=== PATIENT | female | born 1970 | race Two or more races ===

== ENCOUNTER 2018-04-04 06:56 | Inpatient (IN) | payer BC ==
[~2018-04-04] VITALS: Ht 152.4 cm; Wt 49.9 kg
[2018-04-04 08:20] LABS: Urine Bacteria FEW /hpf (None Seen); Urine Blood 2+ /uL (Negative); Urine Specific Gravity 1.041 (1.001-1.035); Urine WBC 8 /hpf (0 - 5)
[2018-04-04] MEDS ORDERED: SODIUM CHLORIDE 0.9% 1,000 ML IV ONE ×2 (08:35)
[2018-04-04 08:36] LABS: Albumin 3.8 g/dL (3.4-5.0); Amylase 19 U/L (25-115); Anion Gap 12 (5-15); BUN/Creatinine Ratio 16.7; Blood Urea Nitrogen 10 mg/dL (7-18); Calcium 8.7 mg/dL (8.5-10.1); Carbon Dioxide 23 mmol/L (21-32); Chloride 100 mmol/L (98-107); GFR African American > 60 mL/min; GFR Non-African American > 60 mL/min; Lipase 90 U/L (73-393); Magnesium 1.9 mg/dL (1.6-2.6); Potassium 3.3 mmol/L (3.5-5.1); Sodium 135 mmol/L (136-145)
[2018-04-04 08:38] LABS: INR 0.98 (0.9-1.15); Partial Thromboplastin Time 25.5 sec (23.78-33.04); Prothrombin Time 10.5 sec (9.27-12.13)
[2018-04-04 08:40] LABS: Basophils # (auto) 0 uL; Basophils % (auto) 0.1 % (0.0-2.0); Eosinophils # (auto) 0 uL; Eosinophils % (auto) 0.1 % (0.0-7.0); Hematocrit 46.4 % (36.0-46.0); Hemoglobin 15.8 g/dL (12.2-16.2); Lymphocytes # (auto) 0.6 uL; Lymphocytes % (auto) 8.6 % (10.0-50.0); Mean Corpuscular Hemoglobin 30.4 pg (28.0-32.0); Mean Corpuscular Hgb Conc. 34.1 g/dL (32.0-36.0); Mean Corpuscular Volume 89.2 fL (80.0-100.0); Monocytes # (auto) 0.5 uL; Monocytes % (auto) 7.1 % (0.0-12.0); Neutrophils # (auto) 5.5 uL; Neutrophils % (auto) 84.1 % (37.0-80.0); Nucleated Red Blood Cells % 0.1 %; Platelet Count (auto) 269 10^3/uL (140-450); Red Cell Distribution Width 13.7 % (11.8-14.3); White Blood Cell 6.6 10^3/uL (4.4-10.8)
[2018-04-04 08:42] LABS: Glucose 405 mg/dL (74-106)
[2018-04-04] MEDS ORDERED: InsuLIN REG 1unit/0.01ml Soln (100units/ml) IV ONE (08:45)
[2018-04-04 08:47] LABS: Alanine Aminotransferase 89 U/L (13-56); Alkaline Phosphatase 169 U/L (45-117); Aspartate Aminotransferase 51 U/L (15-37); Total Protein 8.2 g/dL (6.4-8.2)
[2018-04-04] MEDS ORDERED: PIPERACILLIN-TAZOB 3.375GM 100 ML IV ONE (10:15)
[2018-04-04] MEDS ORDERED: VANCOMYCIN 1GM/250ML 250 ML IV ONE (10:15)
[2018-04-04] MEDS ORDERED: ONDANSETRON HCL 4 MG/2 ML VIAL IV ONE ×2 (10:45→14:30)
[2018-04-04] MEDS ORDERED: MORPHINE SULFATE 10 MG/ML INJ 1ML SDV IV ONE (10:45)
[2018-04-04] MEDS ORDERED: SODIUM CHLORIDE 0.9% 1,000 ML IV SCH (11:30)
[2018-04-04] MEDS ORDERED: MORPHINE SULFATE 10 MG/ML INJ 1ML SDV IV PRN (11:30)
[2018-04-04] MEDS ORDERED: NITROGLYCERIN 0.4 MG SL TAB SL PRN (11:30)
[2018-04-04] MEDS ORDERED: DEXTROSE (50%) 50ML SYRG IV PRN (11:30)
[2018-04-04] MEDS: InsuLIN REG 1unit/0.01ml Soln (100units/ml) SC SCH ×2 (12:00→18:03)
[2018-04-04] MEDS: ACCU-CHEK COMFORT CURVE STRIP VI SCH ×2 (12:01→18:03)
[2018-04-04] MEDS ORDERED: cefTRIAXone 1GM/50ML D5W 50 ML IV ONE (12:15)
[2018-04-04] MEDS ORDERED: ceFAZolin 1GM/50ML 50 ML IV ONE (13:08)
[2018-04-04] MEDS ORDERED: fentaNYL CITRATE 100 MCG/2 ML VL ONE (13:14)
[2018-04-04] MEDS ORDERED: PROPOFOL 10 MG/ML 20 ML IV ONE (13:15)
[2018-04-04] MEDS ORDERED: MIDAZOLAM HCL 1MG/1ML-2 ML VIAL ONE (13:15)
[2018-04-04] MEDS ORDERED: ROCURONIUM 10MG/ML 10ML VIAL IV ONE (13:15)
[2018-04-04] MEDS ORDERED: hydrALAZINE HCL 20 MG/ML VL IV PRN (14:30)
[2018-04-04] MEDS ORDERED: ePHEDrine SULFATE 50 MG/ML AMP IV PRN (14:30)
[2018-04-04] MEDS ORDERED: HYDROmorphone HCL 2 MG/ML VL IV PRN (14:30)
[2018-04-04] MEDS: ONDANSETRON HCL 4 MG/2 ML VIAL IV PRN (14:59)
--- NOTE | 2018-04-04 17:50 | NUR ---
Telemetry admit from PACU JADESHASHANKSEAMUSJAGJIT admitted to Telemetry unit after SBAR received. Patient oriented to Ashley bryant RN, unit, room, bed, and unit policies regarding patient care and visiting hours. Patient now on continuous telemetry monitoring placed on bedside oxygen, weighed by bedscale and encouraged to call if they need something. All questions and concerns addressed, patient verbalized understanding.
[2018-04-04] MEDS: metroNIDAZOLE 500MG/100ML 100 ML IV SCH (18:03)
[2018-04-04] MEDS: SODIUM CHLORIDE 0.9% 1,000 ML IV SCH (18:03)
--- NOTE | 2018-04-04 18:49 | NUR ---
END OF SHIFT PATIENT RESTING IN BED. NO S/S OF DISTRESS. INSTRUCTED PATIENT TO CALL PRN. BED IN LOWEST LOCKED POSITION, CALL LIGHT WITHIN REACH. ENDORSED CARE TO REYNA RUIZ.
--- NOTE | 2018-04-04 19:00 | NUR ---
Opening Shift Note Assumed care of patient, awake and alert. No S/S of distress/SOB or pain. Instructed on POC and to call for assist PRN, will continue to monitor for changes Q1hr and PRN.
[2018-04-04 22:00] VITALS: BP 96/67
[2018-04-05] MEDS: metroNIDAZOLE 500MG/100ML 100 ML IV SCH ×5 (00:41→23:17)
[2018-04-05] MEDS: SODIUM CHLORIDE 0.9% 1,000 ML IV SCH ×4 (00:42→18:18)
[2018-04-05 04:00] VITALS: BP 89/53
[2018-04-05 05:31] LABS: Basophils # (auto) 0 uL; Basophils % (auto) 0.1 % (0.0-2.0); Eosinophils # (auto) 0 uL; Eosinophils % (auto) 0.9 % (0.0-7.0); Hematocrit 36.5 % (36.0-46.0); Hemoglobin 12.5 g/dL (12.2-16.2); Lymphocytes # (auto) 0.8 uL; Lymphocytes % (auto) 15.6 % (10.0-50.0); Mean Corpuscular Hemoglobin 30.7 pg (28.0-32.0); Mean Corpuscular Hgb Conc. 34.3 g/dL (32.0-36.0); Mean Corpuscular Volume 89.4 fL (80.0-100.0); Monocytes # (auto) 0.3 uL; Monocytes % (auto) 5.2 % (0.0-12.0); Neutrophils # (auto) 4.2 uL; Neutrophils % (auto) 78.2 % (37.0-80.0); Platelet Count (auto) 204 10^3/uL (140-450); Red Blood Cells 4.08 10^6/uL (4.0-5.20); Red Cell Distribution Width 13.5 % (11.8-14.3); White Blood Cell 5.3 10^3/uL (4.4-10.8)
[2018-04-05 05:39] LABS: Albumin 2.6 g/dL (3.4-5.0); Anion Gap 8 (5-15); BUN/Creatinine Ratio 15.9; Blood Urea Nitrogen 7 mg/dL (7-18); Calcium 7.5 mg/dL (8.5-10.1); Carbon Dioxide 24 mmol/L (21-32); Chloride 104 mmol/L (98-107); Glucose 188 mg/dL (74-106); Sodium 136 mmol/L (136-145)
[2018-04-05 05:43] LABS: Alanine Aminotransferase 78 U/L (13-56); Alkaline Phosphatase 83 U/L (45-117); Aspartate Aminotransferase 74 U/L (15-37); Total Protein 6.3 g/dL (6.4-8.2)
[2018-04-05 05:46] LABS: GFR African American > 60 mL/min; GFR Non-African American > 60 mL/min
[2018-04-05 05:49] LABS: Potassium 2.9 mmol/L (3.5-5.1)
[2018-04-05] MEDS: InsuLIN REG 1unit/0.01ml Soln (100units/ml) SC SCH ×4 (06:00→18:19)
[2018-04-05] MEDS: ACCU-CHEK COMFORT CURVE STRIP VI SCH ×4 (06:00→18:19)
[2018-04-05 08:00] VITALS: BP 110/55
--- NOTE | 2018-04-05 08:00 | NUR ---
Opening Shift Note Assumed care of patient, awake, alert, and oriented x4. Patient has complains of abdominal pain when changing position. Patient has IV in left AC 20g running NS at 150mL/hr, patient tolerating well. Patient is on room air with no S/S of distress/SOB. Patient has 2 medial abdominal incisions and SRIDEVI drain to right lower quadrant draining serosanguineous fluid. Instructed on POC and to call for assist PRN, will continue to monitor for changes Q1hr and PRN. Bed in lowest locked position, call light within reach.
[2018-04-05] MEDS: POTASSIUM CHL 20MEQ/100ML 100 ML IV SCH ×4 (08:05→18:56)
--- NOTE | 2018-04-05 08:20 | NUR ---
TEMPERATURE PATIENT TEMPERATURE 102.8. COOLING MEASURES APPLIED. PAGED MANAGER ZONE HOSPITALIST FOR TYLENOL ORDER. WAITING FOR CALL BACK.
[2018-04-05 08:30] VITALS: BP 110/55
[2018-04-05] MEDS ORDERED: cefTRIAXone 1GM/50ML D5W 50 ML IV SCH (09:00)
[2018-04-05] MEDS: ACETAMINOPHEN 325 MG TAB PO PRN ×2 (10:00→23:17)
--- NOTE | 2018-04-05 11:00 | NUR ---
CORTEZ RECEIVED CALL FROM CUSSETA STATING PATIENT'S BLOOD CULTURES CAME BACK POSITIVE FOR GRAM POSITIVE COCCI IN CLUSTERS. PATIENT HR THIS MORNING 117 [address] TEMP 102.8. PAGED [address] EVANS, WAITING FOR CALL BACK.
--- NOTE | 2018-04-05 11:11 | NUR ---
MD AWARE DR. EVANS MADE AWARE OF PATIENTS POSITIVE BLOOD CULTURES, BP 94/56 HR 111, RECHECK 87/47, TEMPERATURE 99.0. PER MD, PATIENT TO GET ONE TIME DOSE OF VANCO AND MD TO SEE THE PATIENT. ORDERS READ BACK AND VERIFIED.
[2018-04-05] MEDS ORDERED: VANCOMYCIN PER PHARMACY 0 MG IV ONE (11:15)
[2018-04-05 12:05] VITALS: BP 94/56
[2018-04-05] MEDS: MORPHINE SULFATE 10 MG/ML INJ 1ML SDV IV PRN ×3 (13:19→23:17)
[2018-04-05] MEDS ORDERED: VANCOMYCIN 1GM/250ML 250 ML IV ONE ×2 (13:45→14:30)
[2018-04-05] MEDS ORDERED: VANCOMYCIN PER PHARMACY 0 MG IV SCH (14:30)
[2018-04-05] MEDS ORDERED: THIAMINE 100mg/ml INJ (200mg/2ml VIAL) IV ONE (14:30)
[2018-04-05] MEDS ORDERED: THIAMINE HCL 100 MG TAB PO ONE (15:00)
--- NOTE | 2018-04-05 16:13 | NUR ---
POTASSIUM PATIENT'S POTASSIUM 3.0. MD PAGED, WAITING FOR CALL BACK.
--- NOTE | 2018-04-05 16:29 | NUR ---
POTASSIUM DR. EVANS RETURNED PAGE REGARDING PATIENT'S POTASSIUM 3.0. PER MD, PATIENT TO GET 40MEQ POTASSIUM IV. ORDERS READ BACK AND VERIFIED.
[2018-04-05 17:20] VITALS: BP 122/68
--- NOTE | 2018-04-05 18:19 | NUR ---
IV insertion IV access obtained, via clean sterile technique by inserting 22 gauge catheter at left hand after 1 attempts. IV secured properly. No trauma to site. Patient tolerated well.
--- NOTE | 2018-04-05 18:30 | NUR ---
SRIDEVI DRAIN 40mL serosanguineous drainage removed from SRIDEVI drain.
[2018-04-05] MEDS: PIPERACILLIN-TAZOB 3.375GM 100 ML IV SCH (19:18)
[2018-04-05 22:00] VITALS: BP 108/59
[2018-04-06] MEDS: PIPERACILLIN-TAZOB 3.375GM 100 ML IV SCH ×4 (00:15→20:19)
[2018-04-06] MEDS: ACCU-CHEK COMFORT CURVE STRIP VI SCH ×4 (00:20→17:20)
[2018-04-06] MEDS: InsuLIN REG 1unit/0.01ml Soln (100units/ml) SC SCH ×4 (02:25→17:29)
[2018-04-06] MEDS ORDERED: VANCOMYCIN HCL 500 MG VL ONE (02:31)
[2018-04-06] MEDS: VANCOMYCIN 500 MG in D5W 5% 100 ML IV SCH ×2 (02:40→15:24)
[2018-04-06] MEDS: SODIUM CHLORIDE 0.9% 1,000 ML IV SCH ×4 (02:43→19:30)
[2018-04-06 04:54] VITALS: BP 99/59
[2018-04-06] MEDS: ACETAMINOPHEN 325 MG TAB PO PRN ×2 (05:07→20:19)
[2018-04-06] MEDS: metroNIDAZOLE 500MG/100ML 100 ML IV SCH ×3 (05:08→17:21)
[2018-04-06 07:15] LABS: Basophils # (auto) 0 uL; Basophils % (auto) 0.2 % (0.0-2.0); Eosinophils # (auto) 0.1 uL; Eosinophils % (auto) 0.9 % (0.0-7.0); Hematocrit 33.6 % (36.0-46.0); Lymphocytes # (auto) 0.8 uL; Lymphocytes % (auto) 12.2 % (10.0-50.0); Mean Corpuscular Hemoglobin 31.8 pg (28.0-32.0); Mean Corpuscular Hgb Conc. 35.7 g/dL (32.0-36.0); Mean Corpuscular Volume 88.9 fL (80.0-100.0); Monocytes # (auto) 0.3 uL; Neutrophils # (auto) 5.6 uL; Neutrophils % (auto) 82.7 % (37.0-80.0); Platelet Count (auto) 203 10^3/uL (140-450); Red Blood Cells 3.77 10^6/uL (4.0-5.20); Red Cell Distribution Width 13.7 % (11.8-14.3); White Blood Cell 6.8 10^3/uL (4.4-10.8)
--- NOTE | 2018-04-06 07:20 | NUR ---
SRIDEVI drain output is 20 ml
--- NOTE | 2018-04-06 07:25 | NUR ---
Opening Shift Note Received report from [place] ORELLANA. Assumed care of patient, awake and alert. No S/S of distress/SOB. Reported pain on surgical area. NOted dry & intact dressing on left upper abdomen with SRIDEVI draining intact & patent draining well. PAtient has not passed gas yet as reported. Instructed on POC and to call for assist PRN, will continue to monitor for changes Q1hr and PRN.
[2018-04-06 07:39] LABS: Chloride 102 mmol/L (98-107); Sodium 133 mmol/L (136-145)
[2018-04-06 07:54] LABS: Alanine Aminotransferase 46 U/L (13-56); Albumin 2.4 g/dL (3.4-5.0); Alkaline Phosphatase 87 U/L (45-117); Anion Gap 10 (5-15); Aspartate Aminotransferase 23 U/L (15-37); Blood Urea Nitrogen 3 mg/dL (7-18); Calcium 7.8 mg/dL (8.5-10.1); Carbon Dioxide 21 mmol/L (21-32); Cholesterol 91 mg/dL (< 200); Glucose 209 mg/dL (74-106); HDL Cholesterol 23 mg/dL (40-59); LDL Cholesterol 59 mg/dL (< 100); Magnesium 1.9 mg/dL (1.6-2.6); Total Protein 6.3 g/dL (6.4-8.2); Triglycerides 126 mg/dL (< 150)
[2018-04-06 08:00] VITALS: BP 103/58
[2018-04-06 08:24] LABS: GFR African American > 60 mL/min; GFR Non-African American > 60 mL/min; Potassium 2.9 mmol/L (3.5-5.1)
[2018-04-06 08:47] VITALS: BP 103/58
--- NOTE | 2018-04-06 08:51 | NUR ---
RECEIVED CALL FROM CHEMISTRY: POTASSIUM OF 2.9. PAGED HOSPITALIST DR. EVANS, WILL WAIT FOR CALL BACK.
[2018-04-06] MEDS ORDERED: POTASSIUM CHLORIDE 40 MEQ, LIDOCAINE 1% (LOCAL ANESTH.) 4 ML in SODIUM CHL 0.9% 100 ML IV ONE (10:00)
[2018-04-06] MEDS ORDERED: THIAMINE 100mg/ml INJ (200mg/2ml VIAL) IV SCH (10:00)
--- NOTE | 2018-04-06 10:00 | NUR ---
Dr. Garvin at bedside. Received verbal order to give patient Potassium 40meqs with lidocaine IV x 1.
[2018-04-06] MEDS ORDERED: MAGNESIUM SULFATE 1GM/100ML 100 ML IV ONE (11:30)
[2018-04-06] MEDS ORDERED: PANTOPRAZOLE 40 MG/10 ML VIAL IV ONE (11:30)
--- NOTE | 2018-04-06 12:00 | NUR ---
INSTRUCTED PATIENT HOW TO USE INCENTIVE SPIROMETRY. PATIENT DID 500 OF AIR PRESSURE.
[2018-04-06 12:12] VITALS: BP 98/48
--- NOTE | 2018-04-06 14:06 | NUR ---
CALLED PHARMACIST AND INFORMED ABOUT THE LATE ADMINISTRATION OF ZOSYN IV DUE TO K-RIDER AND MAGNESIUM IV ORDERED BY MD EARLIER.
--- NOTE | 2018-04-06 14:49 | NUR ---
Nutrition Assessment Notes please see attached link for complete assessment Est. Needs BW 50 [id number] kcal (25-30kcal/kgBW), 50-60 gms pro (1.0-1.2 gms/kgBW). Will continue to monitor pertinent labs and reassess nutrient need prn Addendum: 04/06/18 at [address] Amended: Links added.
--- NOTE | 2018-04-06 15:30 | NUR ---
CALLED PHARMACY TO INFORM ABOUT THE LATE VANCOMYCIN UV ADMINISTRATION, NO ANSWER. WILL TRY TO CALL AGAIN LATER.
--- NOTE | 2018-04-06 16:06 | NUR ---
CALLED PHARMACY AND INFORMED THE LATE ADMINISTRATION OF VANCO IV DUE TO K-RIDER AND MAGNESIUM ORDERED EARLIER, SAID THAT THEY WILL ADJUST THE TIME.
[2018-04-06 16:31] VITALS: BP 131/82
--- NOTE | 2018-04-06 17:07 | NUR ---
TELEMETRY MONITORING BOX RETURNED TO [facility], PATIENT IS DOWNGRADED TO [facility]. WILL CONTINUE CARE.
--- NOTE | 2018-04-06 19:15 | NUR ---
Opening Shift Note Assumed care of patient, awake and alert. No S/S of distress or SOB. Instructed on POC and to call for assistance PRN, will continue to monitor for changes Q1hr and PRN.
[2018-04-06] MEDS: MORPHINE SULFATE 10 MG/ML INJ 1ML SDV IV PRN (20:19)
[2018-04-06] MEDS: ONDANSETRON HCL 4 MG/2 ML VIAL IV PRN (20:20)
--- NOTE | 2018-04-06 20:20 | NUR ---
Patient has fever Patient states has pain and appears to have chills. Temperature taken and was 100.7. Tylenol given, will continue to monitor patient.
--- NOTE | 2018-04-06 21:20 | NUR ---
Reassessed temperature Retook patients temperature and it was 99.4. Patient tolerated Tylenol and cold measures well, will continue to monitor.
[2018-04-06 22:20] VITALS: BP 113/67
[2018-04-07] MEDS: metroNIDAZOLE 500MG/100ML 100 ML IV SCH ×4 (00:04→18:30)
[2018-04-07] MEDS: ACCU-CHEK COMFORT CURVE STRIP VI SCH ×4 (00:11→18:30)
[2018-04-07] MEDS: InsuLIN REG 1unit/0.01ml Soln (100units/ml) SC SCH ×4 (00:12→18:38)
[2018-04-07] MEDS: MORPHINE SULFATE 10 MG/ML INJ 1ML SDV IV PRN (00:34)
[2018-04-07] MEDS: ONDANSETRON HCL 4 MG/2 ML VIAL IV PRN (00:35)
[2018-04-07] MEDS: VANCOMYCIN 500 MG in D5W 5% 100 ML IV SCH ×3 (01:47→14:30)
[2018-04-07] MEDS: PIPERACILLIN-TAZOB 3.375GM 100 ML IV SCH ×4 (01:47→19:52)
[2018-04-07] MEDS: SODIUM CHLORIDE 0.9% 1,000 ML IV SCH ×3 (03:30→22:44)
[2018-04-07 05:42] VITALS: BP 92/52
[2018-04-07 05:43] LABS: Basophils # (auto) 0 uL; Basophils % (auto) 0.1 % (0.0-2.0); Eosinophils # (auto) 0.1 uL; Hematocrit 30.5 % (36.0-46.0); Hemoglobin 10.6 g/dL (12.2-16.2); Lymphocytes # (auto) 0.7 uL; Lymphocytes % (auto) 12.8 % (10.0-50.0); Mean Corpuscular Hemoglobin 30.8 pg (28.0-32.0); Mean Corpuscular Hgb Conc. 34.6 g/dL (32.0-36.0); Mean Corpuscular Volume 89.1 fL (80.0-100.0); Monocytes # (auto) 0.3 uL; Monocytes % (auto) 5.8 % (0.0-12.0); Neutrophils # (auto) 4.6 uL; Neutrophils % (auto) 80.3 % (37.0-80.0); Platelet Count (auto) 195 10^3/uL (140-450); Red Blood Cells 3.42 10^6/uL (4.0-5.20); Red Cell Distribution Width 13.3 % (11.8-14.3); White Blood Cell 5.7 10^3/uL (4.4-10.8)
[2018-04-07] MEDS: ACETAMINOPHEN 325 MG TAB PO PRN (05:50)
[2018-04-07 06:00] LABS: Albumin 2.1 g/dL (3.4-5.0); Anion Gap 10 (5-15); BUN/Creatinine Ratio 8.7; Blood Urea Nitrogen 2 mg/dL (7-18); Calcium 7.1 mg/dL (8.5-10.1); Carbon Dioxide 21 mmol/L (21-32); Chloride 104 mmol/L (98-107); Glucose 227 mg/dL (74-106); Magnesium 1.9 mg/dL (1.6-2.6); Sodium 135 mmol/L (136-145)
--- NOTE | 2018-04-07 06:00 | NUR ---
SRIDEVI drain Emptied 25 cc of serosanguineous fluid from SRIDEVI drain.
[2018-04-07 06:13] LABS: Alanine Aminotransferase 32 U/L (13-56); Alkaline Phosphatase 72 U/L (45-117); Aspartate Aminotransferase 10 U/L (15-37); Bilirubin, Total 0.6 mg/dL (0.2-1.0); Total Protein 5.4 g/dL (6.4-8.2)
[2018-04-07 06:22] LABS: GFR African American > 60 mL/min; GFR Non-African American > 60 mL/min; Potassium 2.8 mmol/L (3.5-5.1)
--- NOTE | 2018-04-07 06:31 | NUR ---
Hospitalist paged Lab called with critical potassium of 2.8, will await call back. Will continue to monitor patient.
--- NOTE | 2018-04-07 06:43 | NUR ---
Hospitalist returned call Informed Fuentes of critical lab for Potassium, orders given, repeated and confirmed.
[2018-04-07] MEDS ORDERED: POTASSIUM CHL 20 Meq TABLET PO ONE (07:00)
--- NOTE | 2018-04-07 07:43 | NUR ---
Opening Shift Note Assumed care of patient, awake and alert. No S/S of distress/SOB or pain. Abdominal binder on and SRIDEVI drain in place. Instructed on POC and to call for assist PRN, will continue to monitor for changes Q1hr and PRN.
[2018-04-07 09:00] VITALS: BP 110/69
[2018-04-07] MEDS: PANTOPRAZOLE 40 MG/10 ML VIAL IV SCH (09:37)
[2018-04-07] MEDS ORDERED: MORPHINE SULFATE 10 MG/ML INJ 1ML SDV IV PRN (11:30)
[2018-04-07] MEDS ORDERED: MAGNESIUM SULFATE 1GM/100ML 100 ML IV ONE (11:30)
[2018-04-07 13:00] VITALS: BP 90/48
[2018-04-07 17:00] VITALS: BP 92/53
--- NOTE | 2018-04-07 19:20 | NUR ---
Opening Shift Note Assumed care of patient, awake and alert. No S/S of distress/SOB or pain. Instructed on POC and to call for assistance PRN, will continue to monitor for changes Q1hr and PRN.
[2018-04-07 21:41] VITALS: BP 104/69
[2018-04-07] MEDS: VANCOMYCIN 750 MG in D5W 5% 250 ML IV SCH (22:42)
[2018-04-08] MEDS: metroNIDAZOLE 500MG/100ML 100 ML IV SCH ×5 (00:12→23:50)
[2018-04-08] MEDS: ACCU-CHEK COMFORT CURVE STRIP VI SCH ×5 (00:12→23:50)
[2018-04-08] MEDS: InsuLIN REG 1unit/0.01ml Soln (100units/ml) SC SCH ×5 (00:22→23:55)
[2018-04-08] MEDS: PIPERACILLIN-TAZOB 3.375GM 100 ML IV SCH ×2 (01:53→08:27)
[2018-04-08] MEDS: ONDANSETRON HCL 4 MG/2 ML VIAL IV PRN (02:23)
[2018-04-08 05:44] VITALS: BP 113/70
[2018-04-08] MEDS: VANCOMYCIN 750 MG in D5W 5% 250 ML IV SCH (06:15)
[2018-04-08 06:26] LABS: Hematocrit 30.8 % (36.0-46.0); Hemoglobin 10.8 g/dL (12.2-16.2)
[2018-04-08 06:45] LABS: Magnesium 1.8 mg/dL (1.6-2.6)
[2018-04-08 06:49] LABS: GFR African American > 60 mL/min; GFR Non-African American > 60 mL/min; Potassium 2.5 mmol/L (3.5-5.1)
--- NOTE | 2018-04-08 06:50 | NUR ---
Hospitalist paged Received critical potassium level of 2.5, will await call back to inform hospitalist.
--- NOTE | 2018-04-08 06:55 | NUR ---
Hospitalist returned call Alfredo called back and I informed him of critical potassium level of 2.5. Orders received, repeated back and confirmed.
[2018-04-08] MEDS ORDERED: POTASSIUM CHL 20 Meq TABLET PO ONE (07:00)
[2018-04-08] MEDS: SODIUM CHLORIDE 0.9% 1,000 ML IV SCH ×2 (07:30→18:16)
[2018-04-08] MEDS: PANTOPRAZOLE 40 MG/10 ML VIAL IV SCH (08:32)
[2018-04-08 09:00] VITALS: BP 114/70
--- NOTE | 2018-04-08 09:50 | NUR ---
Patient ambulating on unit with physical therapist.
[2018-04-08] MEDS ORDERED: cefTRIAXone 1GM/50ML D5W 50 ML IV ONE (10:30)
[2018-04-08] MEDS ORDERED: MAGNESIUM SULFATE 1GM/100ML 100 ML IV ONE (11:30)
[2018-04-08 13:00] VITALS: BP 109/66
[2018-04-08 17:00] VITALS: BP 110/68
--- NOTE | 2018-04-08 19:00 | NUR ---
SRIDEVI drain 10mls
[2018-04-08 22:00] VITALS: BP 87/54
[2018-04-09] MEDS: SODIUM CHLORIDE 0.9% 1,000 ML IV SCH ×2 (03:36→12:40)
[2018-04-09] MEDS: ACCU-CHEK COMFORT CURVE STRIP VI SCH ×3 (05:36→18:13)
[2018-04-09] MEDS: metroNIDAZOLE 500MG/100ML 100 ML IV SCH ×3 (05:40→18:12)
[2018-04-09] MEDS: InsuLIN REG 1unit/0.01ml Soln (100units/ml) SC SCH ×3 (05:40→18:12)
[2018-04-09 05:41] VITALS: BP 90/50
[2018-04-09 05:50] LABS: Hematocrit 31.8 % (36.0-46.0); Hemoglobin 11.1 g/dL (12.2-16.2)
[2018-04-09 06:11] LABS: Calcium 7.1 mg/dL (8.5-10.1); Magnesium 1.9 mg/dL (1.6-2.6)
[2018-04-09 06:26] LABS: BUN/Creatinine Ratio 5.3; Potassium 2.8 mmol/L (3.5-5.1)
--- NOTE | 2018-04-09 06:28 | NUR ---
CRITICAL LAB CALLED WITH A CRITICAL POTASSIUM OF 2.8. PAGED HOSPITALIST, AWAITING CALL BACK.
--- NOTE | 2018-04-09 06:35 | NUR ---
TALKED TO HOSPITALIST. NEW ORDERS CARRIED OUT PER HOSPITALIST.
--- NOTE | 2018-04-09 06:43 | NUR ---
SRIDEVI DRAIN 5 ML OUT
[2018-04-09] MEDS ORDERED: POTASSIUM CHL 20 Meq TABLET PO ONE ×3 (06:45→19:00)
--- NOTE | 2018-04-09 07:25 | NUR ---
OPENING SHIFT PATIENT IS ASLEEP IN BED. NO S/S OF DISTRESS, SOB, OR PAIN. RESPIRATIONS ARE EVEN AND UNLABORED. BED IS IN LOWEST LOCKED POSITION, SIDE RAILS UPX 2, AND CALL LIGHT WITHIN REACH. PATIENT IS ON ROOM AIR WITH NORMAL SALINE INFUSING AT 100 ML/HR. WILL CONTINUE TO MONITOR Q1 HOUR AND PRN.
[2018-04-09 09:00] VITALS: BP 104/60
[2018-04-09] MEDS: cefTRIAXone 1GM/50ML D5W 50 ML IV SCH (10:32)
[2018-04-09] MEDS: PANTOPRAZOLE 40 MG/10 ML VIAL IV SCH (10:32)
--- NOTE | 2018-04-09 10:41 | NUR ---
PT Patient refused to be OOB during PT visit and stated she is not feeling well. Addendum: 04/09/18 at 1041 by AMADO SANTIAGO PTT Amended: Links added.
--- NOTE | 2018-04-09 12:08 | NUR ---
PATIENT AMBULATING WITH PT PATIENT AMBULATING WITH PT AND TOLERATING WELL WITHOUT S/D OF DISTRESS, OR, PAIN.
--- NOTE | 2018-04-09 12:47 | NUR ---
Nutrition Follow-up Notes Wt.: 49.9 kg Pt was with PT when rounded this am. per nursing pt with no distress noted. pt is now advanced to soft diet with adequate Po of 75% x 6 per RN doc. per records pt s/p lap christa Est. Needs BW 50 [id number] kcal (25-30kcal/kgBW), 50-60 gms pro (1.0-1.2 gms/kgBW). Will continue to monitor pertinent labs and reassess nutrient need prn Labs: GLU 183 H, CA 7.1 L, A1C 11.6 H, ALB 2.4 L. Skin: Vargas scale 20, low risk skin intact per RN doc. GI: Pt had 1 BM today per retail greeter. PES: Altered nutrition related lab values r/t acute/chronic medical condition aeb elev A1C, hyperglycemia, mod hypoalb hypocalcemia Will continue to monitor PO intake, skin status, pertinent labs and weight trend. F/u in 3-5 days. Rec.: 1.) Consider CCHO 45gm/meal along with current diet. 2) refer to CDE on DC. 3) continue current plan of care
[2018-04-09 13:00] VITALS: BP 110/68
--- NOTE | 2018-04-09 13:00 | NUR ---
DR. See CUTLER AT BEDSIDE Uvaldo DISCUSSED POC WITH PATIENT PATIENT VERBALIZED UNDERSTANDING
--- NOTE | 2018-04-09 13:31 | NUR ---
5ML OUTPUT FROM SRIDEVI DRAIN 5 ML SANGUINEOUS DRAINAGE EMPTIED FROM J.P DRAIN PATIENT C/O OF 05/22 PAIN FROM ABDOMINAL AREA WHERE DRAIN IS PATIENT DENIES NEED FOR PAIN MEDICATION AT THIS TIME
--- NOTE | 2018-04-09 18:24 | NUR ---
CALLED LAB PATIENT HAD A CRITICAL LAB VALUE EARLY THIS MORNING. POTASSIUM WAS GIVEN NO LABS HAVE BEEN DRAWN SINCE ADMINISTRATION OF POTASSIUM LAB REQUESTS NEW ORDER TO BE PUT IN WILL CONTACT HOSPITALIST SLOT FLOORPERSON
--- NOTE | 2018-04-09 18:25 | NUR ---
2ML OUTPUT FROM SRIDEVI DRAIN 2 ML SANGUINEOUS DRAINAGE EMPTIED FROM J.P DRAIN
--- NOTE | 2018-04-09 18:26 | NUR ---
BRITTANY TABOR TO REQUEST POTASSIUM LAB DRAW FROM Janell.Kye. WILL AWAIT Janell.Kye. CALL BACK
--- NOTE | 2018-04-09 18:33 | NUR ---
DR PELAEZ CALLED BACK INFORMED M.D. OF PATIENT'S EARLIER LAB VALUES AND INTERVENTIONS TAKEN M.D. ORDERED 40 mEq er TABLET OF POTASSIUM NOW LABS ARE ORDERED FOR TOMORROW MORNING. NO NEW LABS ARE TO BE ORDERED THIS EVENING
--- NOTE | 2018-04-09 18:34 | NUR ---
POTASSIUM PHARMACY HAS NOT YET APPROVED MEDICATION WILL ENDORSE DOSE TO NOC R.N.
--- NOTE | 2018-04-09 18:48 | NUR ---
END OF SHIFT PATIENT RESTING IN BED. NO S/S OF DISTRESS ,SOB, OR PAIN. RESPIRATIONS EVEN AND UNLABORED. BED IS IN LOWEST POSITION, SIDE RAILS UPX2, AND CALL LIGHT WITHIN REACH. NOC R.N. AWARE OF POTASSIUM ADMINISTRATION NEEDING TO BE GIVEN. WILL ENDORSE CARE TO WINE PASTEURIZER R.N.
[2018-04-09 21:30] VITALS: BP 96/61
[2018-04-10] MEDS: ACCU-CHEK COMFORT CURVE STRIP VI SCH ×2 (00:14→06:24)
[2018-04-10] MEDS: SODIUM CHLORIDE 0.9% 1,000 ML IV SCH ×2 (00:21→09:50)
[2018-04-10] MEDS: metroNIDAZOLE 500MG/100ML 100 ML IV SCH ×2 (00:21→06:24)
[2018-04-10] MEDS: InsuLIN REG 1unit/0.01ml Soln (100units/ml) SC SCH ×2 (00:22→06:24)
[2018-04-10 05:49] VITALS: BP 100/60
--- NOTE | 2018-04-10 07:25 | NUR ---
OPENING SHIFT PATIENT IS ASLEEP IN BED. NO S/S OF DISTRESS, SOB, OR PAIN. RESPIRATIONS EVEN AND UNLABORED. BED IS IN LOWEST POSITION, SIDE RAILS UP X2, AND CALL LIGHT WITHIN REACH. WILL CONTINUE TO MONITOR PATIENT Q1 HOUR AND PRN.
[2018-04-10 07:26] LABS: BUN/Creatinine Ratio 11.8; Calcium 7.6 mg/dL (8.5-10.1); Potassium 3.5 mmol/L (3.5-5.1)
[2018-04-10 09:00] VITALS: BP 96/57
--- NOTE | 2018-04-10 09:40 | NUR ---
PATIENT EDUCATION PATIENT EDUCATED ON J.P DRAIN. EDUCATION INCLUDED, FUNCTION, PURPOSE, RISK FACTORS, THINGS TO WATCH OUT FOR, MEASUREMENT OF DRAINAGE, SHOWERING DIRECTIONS, AND TO HOW COMPRESS DRAIN BEFORE CLOSURE. BANDAGE SURROUNDING DRAIN WAS REINFORCED WITH WHITE SURGICAL TAPE. TWO LEFT ABDOMINAL DRESSINGS CHANGED DUE TO SATURATION OF PREVIOUS SEROSANGUINEOUS DRAINAGE. DRESSINGS REMOVED WITH CLEAN TECHNIQUE. STERILE GUAZE PLACED OVER INCISIONS, STERILE TEGADERM PLACED OVER GAUZE. PATIENT TOLERATED PROCEDURE WITHOUT S/S OF DISTRESS, SOB, OR PAIN. TWO SPECIMEN CUPS PROVIDED TO PATIENT TO AID IN MEASUREMENT OF DRAINAGE. EXTRA SUPPLIES ALSO PROVIDED TO REINFORCE BANDAGE IF NECESSARY. PATIENT VERBALIZED UNDERSTANDING OF EDUCATION
[2018-04-10] MEDS: PANTOPRAZOLE 40 MG/10 ML VIAL IV SCH (09:50)
[2018-04-10] MEDS: cefTRIAXone 1GM/50ML D5W 50 ML IV SCH (09:50)
[2018-04-10 09:51] VITALS: BP 96/57
--- NOTE | 2018-04-10 10:17 | NUR ---
Pt refusing to get out of bed with ChanelAmiJuwanAmi Pt states that she has already been up several times in a.m. on her own and she is now complaining of dizziness and feeling lightheaded. Advised Pt will check back later Addendum: 04/10/18 at 1018 by Shelley Lea PT Amended: Links added.
--- NOTE | 2018-04-10 10:30 | NUR ---
5ML OUTPUT FROM SRIDEVI DRAIN 5 ML SANGUINEOUS DRAINAGE EMPTIED FROM J.P DRAIN PATIENT C/O OF 2 PAIN FROM ABDOMINAL AREA WHERE DRAIN IS PATIENT DENIES NEED FOR PAIN MEDICATION AT THIS TIME
--- NOTE | 2018-04-10 11:47 | NUR ---
DISCHARGE Discharge instructions given as ordered. Encouraged to follow up Lucretia Scar to find primary care provider. [facility] for [facility] urgent care provided and information on when to make an appointment. Instructed to follow up with Dr. Rush in one week and to call to make the appointment tomorrow morning. All questions and concerns addressed. Patient verbalized understanding. IVs removed with catheters intact, pressure dressings applied. Patient taken to vehicle via wheelchair with all personal belongings, accompanied by staff and family member. No distress noted at time of departure.
== END 2018-04-10 11:40 | disposition home or self-care (01) | DRG 854 ==
LOC: ER 06:56 → TELE 11:30 → TELE-CENTR 17:39 → CENTRAL 04-06 17:09
PROVIDERS: ADMIT Nurse Practitioner Acute Care; ATTEND Internal Medicine
PROC: 0FT44ZZ Resection of Gallbladder, Percutaneous Endoscopic Approach (ICD-10-PCS; principal; 2018-04-04 13:08)
DX: A41.9 Sepsis, unspecified organism (principal); N39.0 Urinary tract infection, site not specified; K80.00 Calculus of gallbladder with acute cholecystitis without obstruction; E11.65 Type 2 diabetes mellitus with hyperglycemia; E87.6 Hypokalemia; F10.10 Alcohol abuse, uncomplicated; K82.8 Other specified diseases of gallbladder; N20.0 Calculus of kidney; B96.1 Klebsiella pneumoniae [K. pneumoniae] as the cause of diseases classified elsewhere; Z90.710 Acquired absence of both cervix and uterus
CPT/HCPCS: 36415; 71045; 74176; 76705; 80048; 80053; 80061; 80202; 81001; 82010; 82150; 82565; 82962; 83036; 83605; 83690; 83735; 83880; 84132; 84702; 85014; 85018; 85025; 85610; 85730; 86850; 86900; 86901; 87040; 87070; 87075; 87077; 87086; 87186; 87205; 93005; 96361; 96365; 96375; 97116; 97163; 97530; A6257; C9113; G0378; J0690; J0696; J1815; J2001; J2250; J2405; J2543; J2704; J3480; J3490; J7060